=== PATIENT | female | born 1990 | race Caucasian/White ===

== ENCOUNTER 2021-11-13 13:49 | Inpatient (IN) | payer OTHER ==
[2021-11-13] MEDS ORDERED: CITRIC ACID/SODIUM CITRATE 30 ML UNIT-DOSE CUP PO ONE (14:09)
[2021-11-13] MEDS ORDERED: ELECTROLYTE-148 SOLN 1,000 ML IV SCH (14:15)
[2021-11-13 14:49] VITALS: BMI 31.1
[2021-11-13] MEDS ORDERED: ONDANSETRON 4 MG/2 ML VIAL ONE (14:54)
[2021-11-13] MEDS ORDERED: morphine SULFATE/PF 1 MG/2 ML (2cc Syringe - QUVA) ONE (14:54)
[2021-11-13] MEDS ORDERED: KETOROLAC TROMETHAMINE 30 MG/1 ML VIAL ONE (14:54)
[2021-11-13] MEDS ORDERED: OXYTOCIN 10 UNITS/ML VIAL ONE (14:54)
[2021-11-13] MEDS ORDERED: ceFAZolin SODIUM 1 GM VIAL ONE (15:36)
[2021-11-13] MEDS ORDERED: METHYLERGONOVINE MALEATE 0.2 MG/1 ML AMP IM PRN (16:07)
[2021-11-13] MEDS ORDERED: ACETAMINOPHEN 325 MG TABLET (FP) PO PRN (16:07)
[2021-11-13] MEDS ORDERED: OXYTOCIN 20 UNITS in 0.9% NS 20 UNIT/1,000 ML INFUS.BAG IV ONE (16:19)
[2021-11-13] MEDS: OXYTOCIN 20 UNITS in 0.9% NS 20 UNIT/1,000 ML INFUS.BAG IV SCH (16:20)
[2021-11-13] MEDS: FERROUS SO4 325 MG TABLET (FP) PO SCH (21:21)
[2021-11-14] MEDS ORDERED: oxyCODONE HCL 5 MG TABLET PO PRN (04:07)
[2021-11-14] MEDS: IBUPROFEN 600 MG TABLET (FP) PO PRN ×4 (05:08→20:45)
[2021-11-14] MEDS: SIMETHICONE 80 MG TAB.CHEW (FP) PO PRN ×2 (05:08→20:44)
[2021-11-14] MEDS: PRENATAL VITAMINS W/ FOLIC ACID TABLET (FP) PO SCH (09:04)
[2021-11-14] MEDS: FERROUS SO4 325 MG TABLET (FP) PO SCH ×2 (09:04→22:55)
[2021-11-14 09:39] LABS: BASO % 0.3 % (0-2.0); EOS % 0.2 % (0-4.5); HEMATOCRIT 31.8 % (32.4-45.2); HEMOGLOBIN 11.2 GM/dL (10.7-15.3); LYMPH % 16.5 % (8-40); MCH 31.9 pg (25.7-33.7); MCHC 35.3 g/dl (32.0-36.0); MEAN CELL VOLUME 90.5 fl (80-96); MEAN PLT VOLUME 9.6 fl (7.5-11.1); PLATELET COUNT 213 10^3/uL (134-434); RBC 3.52 M/mm3 (3.60-5.2); RDW 13.7 % (11.6-15.6); WHITE BLOOD COUNT 8.8 K/mm3 (4.0-10.0)
[2021-11-14] MEDS ORDERED: BISACODYL 10 MG SUPP.RECT RC PRN (16:07)
[2021-11-14] MEDS: SENNOSIDES/DOCUSATE COMBO (SENNA PLUS) TABLET (UD) PO PRN (20:44)
[2021-11-15] MEDS: IBUPROFEN 600 MG TABLET (FP) PO PRN ×4 (02:17→22:02)
[2021-11-15] MEDS: SIMETHICONE 80 MG TAB.CHEW (FP) PO PRN ×3 (02:17→22:02)
[2021-11-15] MEDS: OXYTOCIN 20 UNITS in 0.9% NS 20 UNIT/1,000 ML INFUS.BAG IV SCH (07:13)
[2021-11-15] MEDS: FERROUS SO4 325 MG TABLET (FP) PO SCH ×2 (09:12→22:02)
[2021-11-15] MEDS: PRENATAL VITAMINS W/ FOLIC ACID TABLET (FP) PO SCH (09:12)
[2021-11-15] MEDS: SENNOSIDES/DOCUSATE COMBO (SENNA PLUS) TABLET (UD) PO PRN (22:02)
[2021-11-16] MEDS: IBUPROFEN 600 MG TABLET (FP) PO PRN ×3 (04:08→19:53)
[2021-11-16] MEDS: SIMETHICONE 80 MG TAB.CHEW (FP) PO PRN ×3 (04:08→19:53)
[2021-11-16 07:46] LABS: BASO % 0.3 % (0-2.0); EOS % 2.6 % (0-4.5); HEMATOCRIT 28.4 % (32.4-45.2); HEMOGLOBIN 9.7 GM/dL (10.7-15.3); LYMPH % 21.3 % (8-40); MCH 31.2 pg (25.7-33.7); MEAN CELL VOLUME 91.8 fl (80-96); MEAN PLT VOLUME 9.7 fl (7.5-11.1); MONO % 6.7 % (3.8-10.2); NEUT % 69.1 % (42.8-82.8); PLATELET COUNT 225 10^3/uL (134-434); RDW 13.6 % (11.6-15.6); WHITE BLOOD COUNT 7.1 K/mm3 (4.0-10.0)
[2021-11-16] MEDS: PRENATAL VITAMINS W/ FOLIC ACID TABLET (FP) PO SCH (11:05)
[2021-11-16] MEDS: FERROUS SO4 325 MG TABLET (FP) PO SCH ×3 (11:05→22:01)
[2021-11-16] MEDS: SENNOSIDES/DOCUSATE COMBO (SENNA PLUS) TABLET (UD) PO PRN (19:53)
[2021-11-17] MEDS: SIMETHICONE 80 MG TAB.CHEW (FP) PO PRN ×4 (01:04→14:32)
[2021-11-17] MEDS: IBUPROFEN 600 MG TABLET (FP) PO PRN ×4 (01:05→14:32)
[2021-11-17] MEDS: PRENATAL VITAMINS W/ FOLIC ACID TABLET (FP) PO SCH (10:22)
[2021-11-17] MEDS: FERROUS SO4 325 MG TABLET (FP) PO SCH (10:22)
[2021-11-17 16:03] VITALS: BP 120/81; PULSE 73; TEMP 98
== END 2021-11-17 15:33 | disposition home or self-care (01) | DRG 540 ==
LOC: JLDR 13:49 → J3W 17:38
PROVIDERS: ADMIT Obstetrics & Gynecology; ATTEND Obstetrics & Gynecology
PROC: 10D00Z1 Extraction of Products of Conception, Low, Open Approach (ICD-10-PCS; principal; 2021-11-13)
DX: O34.211 Maternal care for low transverse scar from previous cesarean delivery (principal); Z3A.36 36 weeks gestation of pregnancy; Z37.0 Single live birth; O26.613 Liver and biliary tract disorders in pregnancy, third trimester; K83.1 Obstruction of bile duct
CPT/HCPCS: 36415; 80048; 85025; 85610; 85730; 86780; 86850; 86900; 86901; 88307-TC; C9803-CS; U0003; U0005